=== PATIENT | female | born 1950 | race Hispanic/Latino ===

== ENCOUNTER 2018-08-10 08:34 | Emergency (ER) | payer MEDICARE ==
[~2018-08-10] VITALS: Ht 154.9 cm; Wt 78.9 kg
--- OUTSIDE RECORDS SUMMARY | 2018-08-10 08:37 | XMS REPORT | Summary of Care ---
Author Author [facility] Organization [facility] Address Unknown Phone Unavailable Encounter HQ Sabino(MANDA) [id number] Date(s): 10/27/16 - 10/27/16 [facility] [address] [place] [address]- Discharge Disposition: Home or Self Care Attending Physician: Felecia Welsh DO Vital Signs No data available for this section Problem List Condition Effective Dates Status Health Status Informant Benign essential Active HTN(Confirmed) BPPV (benign Active paroxysmal positional vertigo)(Confirmed) Low serum vitamin Active D(Confirmed) SOB (shortness of Active breath) on exertion(Confirmed) Excess ear Active wax(Confirmed) Hyperlipidemia, Active mixed(Confirmed) Obesity(Confirmed) Active Osteoporosis(Confirm Active ed) Prediabetes(Confirme Active d) Allergies, Adverse Reactions, Alerts Substance Reaction Severity Status Cipro Active NKDA Active Medications No data available for this section Results No data available for this section Immunizations Given and Recorded Vaccine Date Status Refusal Reason pneumococcal 23-valent vaccine 03/23/16 Recorded zoster vaccine live 03/23/16 Recorded Procedures No data available for this section Social History Social History Type Response Exercise Exercise type: Walking. Employment/School Status: Retired. Alcohol Never, Previous treatment: None. Alcohol use interferes with work or home: No. Drinks more than intended: No. Others hurt by drinking: No. Ready to change: No. Household alcohol concerns: No. Smoking Status Never smoker; Exposure to Tobacco Smoke None; Cigarette Smoking Last 365 Days No; Reg Smoking Cessation Counseling No Assessment and Plan No data available for this section
--- OUTSIDE RECORDS SUMMARY | 2018-08-10 08:37 | XMS REPORT | Summary of Care ---
Author Author [facility] Primary Care [facility] Organization [facility] Address Unknown Phone Unavailable Encounter HQ Bethr_shantelle(FIN) [id number] Date(s): 03/29/17 - 03/29/17 [facility] [address], [address] [place] [address]- [phone] Attending Physician: Kaela Klein MD Vital Signs No data available for this section Problem List Condition Effective Dates Status Health Status Informant Acute Active bronchitis(Confirmed ) Right knee Active pain(Confirmed) Benign essential Active HTN(Confirmed) BPPV (benign Active paroxysmal positional vertigo)(Confirmed) Breast cancer Active screening(Confirmed) B12 Active deficiency(Confirmed ) Low serum vitamin Active D(Confirmed) SOB (shortness of Active breath) on exertion(Confirmed) Skin rash(Confirmed) Active Excess ear Active wax(Confirmed) Kidney Active stones(Confirmed) Low back Active pain(Confirmed) Hyperlipidemia, Active mixed(Confirmed) Obesity(Confirmed) Active Osteoporosis(Confirm Active ed) Annual physical Active exam(Confirmed) Prediabetes(Confirme Active d) Colon cancer Active screening(Confirmed) Wheezing(Confirmed) Active Allergies, Adverse Reactions, Alerts Substance Reaction Severity Status Cipro Active NKDA Active Medications No data available for this section Results No data available for this section Immunizations Given and Recorded Vaccine Date Status Refusal Reason pneumococcal 23-valent vaccine 03/23/16 Recorded zoster vaccine live 03/23/16 Recorded Procedures Procedure Date Related Diagnosis Body Site Status Eye examination 09/2016 Completed Mammogram 2015 Completed Social History Social History Type Response Exercise [...] Days No; Reg Smoking Cessation Counseling No entered on: 06/24/17 Assessment and Plan No data available for this section
--- OUTSIDE RECORDS SUMMARY | 2018-08-10 08:37 | XMS REPORT | Summary of Care ---
Author Author [facility] Organization [facility] Address Unknown Phone Unavailable Encounter HQ Sabino(FIN) [id number] Date(s): 06/24/17 - 06/24/17 [facility] [address], [address] [place] [address]- [phone] Discharge Disposition: Home or Self Care Attending Physician: Kaela Klein MD Vital Signs Most recent to 1 oldest [Reference Range]: Height 154.94 cm (06/24/17 7:43 AM) Temperature Oral 98.2 DegF [96.4-99.1 DegF] (06/24/17 7:43 AM) Blood Pressure 136/74 mmHg [90-140/60-90 mmHg] (06/24/17 7:43 AM) Respiratory Rate 14 BRMIN [14-20 BRMIN] (06/24/17 7:43 AM) Peripheral Pulse 75 bpm Rate [60-100 bpm] (06/24/17 7:43 AM) Weight 83.182 kg (06/24/17 7:43 AM) Body Mass Index 34.65 m2 (06/24/17 7:43 AM) Problem List Condition Effective Dates Status Health [...] Severity Status Cipro Active NKDA Active Medications DME Addition #1 See Instructions, NEBULIZER MACHINE TO USE DAILY FOR WHEEZING, # 1 ea, 0 Refill( s) Start Date: 06/24/17 Status: Ordered ProAir HFA 90 mcg/inh inhalation aerosol with adapter 1 puff, INHALER, Q6H, PRN for wheezing, # 2 ea, 0 Refill(s) Start Date: 06/24/17 Stop Date: 07/08/17 Status: Ordered Results No data available for this section [...]
--- OUTSIDE RECORDS SUMMARY | 2018-08-10 08:37 | XMS REPORT | Summary of Care ---
Author Author [facility] Organization [facility] Address Unknown Phone Unavailable Encounter YE Gallo(MANDA) [id number] Date(s): 01/05/17 - 01/05/17 [facility] [address] [place] [address]- Discharge Disposition: Home or Self Care Attending Physician: Kaela Klein MD Referring Physician: Kaela Klein MD Vital Signs No data available for this section Problem List Condition Effective Dates Status Health Status Informant Right knee Active pain(Confirmed) Benign essential Active HTN(Confirmed) BPPV (benign Active paroxysmal positional vertigo)(Confirmed) Low serum vitamin Active D(Confirmed) SOB (shortness of Active breath) on exertion(Confirmed) Skin rash(Confirmed) Active Excess ear Active wax(Confirmed) Low back Active pain(Confirmed) Hyperlipidemia, Active mixed(Confirmed) [...] Procedures Procedure Date Related Diagnosis Body Site Eye examination 09/2016 Mammogram 2016 Social History Social History Type Response Exercise [...]
--- OUTSIDE RECORDS SUMMARY | 2018-08-10 08:37 | XMS REPORT | Summary of Care ---
Author Author [facility] Primary [facility] Organization [facility] Address Unknown Phone Unavailable Encounter HQ Bethr_shantelle(FIN) [id number] Date(s): 03/29/17 - 03/29/17 [facility] [address], [address] [place] [address]- [phone] Attending Physician: Kaela Klein MD Vital Signs [...]
--- OUTSIDE RECORDS SUMMARY | 2018-08-10 08:37 | XMS REPORT | Continuity of Care Document ---
Author Author [facility] Interface Address Unknown Phone Unavailable Problems Problem Status Onset Date Classification Date Reported Comments Source Age-related osteoporosis without current pathological fracture 12/22/2017 07/05/2018 [facility] [place] COUGH Active 08/30/2017 [facility] Epigastric pain 07/16/2017 07/20/2017 [facility] Generalized headache 07/16/2017 07/20/2017 [facility] HYPERTENSION Active 07/16/2017 [facility] Allergic rhinitis, unspecified 06/25/2017 09/23/2017 [facility] R06.2 Active 06/17/2017 [facility] DX: N20.0=CALCULUS OF KIDNEY M54.5 Active 01/03/2017 [facility] M25.511 Active 10/27/2016 [facility] M79.641 Active 07/09/2016 [facility] TRUNK STABALIZATION Active 06/20/2016 [facility] TRUNK STABILIZATION Active 06/16/2016 [facility] ABNORMAL MAMMO Active 04/19/2016 [facility] DX: ROUTINE SCREENING Active 04/09/2016 [facility] Right hand pain Active Problem 08/28/2016 [facility] Left ear pain Active Problem 08/28/2016 [facility] Sore throat Active Problem 08/28/2016 [facility] Right ear pain Active Problem 08/28/2016 [facility] Right knee pain Active Problem 06/12/2018 [facility] Benign essential HTN Active Problem 06/12/2018 [facility] BPPV (<span ID="[id number]">Confirmed</span>) Active Problem 06/12/2018 [facility] Low serum vitamin D Active Problem 06/12/2018 [facility] SOB on exertion(<span ID="[id number]">Confirmed</span>) Active Problem 06/12/[address] [facility] Skin rash Active Problem 06/12/2018 [facility] Excess ear wax Active Problem 06/12/2018 [facility] Low back pain Active Problem 06/12/2018 [facility] Hyperlipidemia, mixed Active Problem 06/12/2018 [facility] Obesity Active Problem 06/12/2018 [facility] Osteoporosis Active Problem 06/12/2018 [facility] Prediabetes Active Problem 06/12/2018 [facility] Cough 09/02/2017 [facility] Wheezing 09/23/2017 [facility] Atherosclerosis of aorta 09/23/2017 [facility] Essential hypertension 07/05/2018 [facility] [place] Primary osteoarthritis, left hand 07/03/2018 [facility] [place] Primary osteoarthritis, right hand 07/03/2018 [facility] [place] Pleural plaque without asbestos 07/03/2018 [facility] [place] Acute bronchitis Active Problem 07/05/2018 [facility], [facility] [place] Adrenal cyst Active Problem 07/05/2018 [facility], [facility] [place] Right knee pain Active Problem 07/05/2018 [facility] [place] Benign essential HTN Active Problem 07/05/2018 [facility] [place] BPPV (<span ID="[id number]">Confirmed</span>) Active Problem 07/05/2018 [facility] [place] Breast cancer screening Active Problem 07/05/2018 [facility] [place] Chronic cough Active Problem 07/05/2018 [facility] [place] B12 deficiency [facility]05[facility] [place] Low serum vitamin D Active Problem 07/05/2018 [facility] [place] SOB on exertion(<span ID="[id number]">Confirmed</span>) Active Problem 07/05/2018 [facility], [facility] [place] Skin rash Active Problem 07/05/2018 [facility] [place] [facility] discharge follow-up Active Problem 07/05/2018 [facility] [place] GERD (<span ID="[id number]">Confirmed</span>) Active Problem 07/05/2018 [facility], [facility] [place] Headache Active Problem 07/05/2018 [facility], [facility] [place] Excess ear wax Active Problem 07/05/2018 [facility], [facility] [place] Kidney stones Active Problem 07/05/2018 [facility], [facility] [place] Low back pain Active Problem 07/05/2018 [facility], [facility] [place] Hyperlipidemia, mixed Active Problem 07/05/2018 [facility], [facility] [place] Obesity Active Problem 07/05/2018 [facility] [place], [facility] [place] Osteoporosis Active Problem 07/05/2018 [facility], [facility] [place] Prediabetes Active Problem 07/05/2018 [facility], [facility] [place] Wheezing Active Problem 07/05/2018 [facility], [facility] [place] Asymptomatic menopausal state 07/05/2018 [facility] [place] Polyarthritis, unspecified 07/05/2018 [facility] [place] J20.9 Active [facility] ACUTE BRONCHITIS, UNSPECIFIED Active [facility] OTH ABN AND INCONCLUSIVE FINDINGS ON DX Active [facility] AGE-RELATED OSTEOPOROSIS W/O CURRENT PAT Active [facility] M25.551 Active [facility] PAIN IN RIGHT KNEE Active [facility] LOW BACK PAIN Active [facility] OSTEOARTHRITIS OF KNEE, UNSPECIFIED Active [facility] PAIN IN RIGHT SHOULDER Active [facility] PAIN IN RIGHT HIP Active [facility] PAIN IN RIGHT HAND Active [facility] CALCULUS OF KIDNEY Active [facility] Medications Medication Details Route Status Patient Instructions Ordering Provider Order Date Source losartan 50 mg oral tablet See Instructions, TOME KRISTYN TABLETA TODOS [place], # 30 tab, 0 Refill(s), Pharmacy: [facility]/pharmacy #[id number] Active 05/17/2018 [facility] losartan 50 mg oral tablet 50 mg=1 tab, PO, Daily, # 90 tab, 1 Refill(s), Pharmacy: [facility]/pharmacy #[id number] No Longer Active 11/23/2017 [facility] Metoprolol Succinate ER 50 mg oral tablet, extended release See Instructions, TAKE ONE TABLET BY MOUTH DAILY, # 90 tab, 1 Refill(s), Pharmacy: [facility]/pharmacy #[id number] Active 11/23/2017 [facility] simvastatin 10 mg oral tablet 10 mg=1 tab, PO, Bedtime, # 90 tab, 1 Refill(s), [id number] 11/23/2017 [facility] DME Addition #1 See Instructions, PATIENT NEEDS BP MACHINE TO CHECK BP BID, # 1 ea, 0 Refill(s) Active 08/22/2017 [facility] valsartan 80 mg oral tablet 80 mg=1 tab, PO, Daily, # 90 tab, 1 Refill(s), [id number] Active 08/22/2017 [facility] baclofen 10 mg oral tablet 10 mg=1 tab, PO, Bedtime, PRN Spasms, MAY CAUSE DRAWSINESS, # 10 tab, 0 Refill(s), [id number] Active 07[facility]18/2017 [facility] ibuprofen 800 mg oral tablet 800 mg=1 tab, PO, Q12H, PRN Pain, Take with food, X 10 day, # 20 tab, 0 Refill(s), [id number] Active 07/18/2017 [facility] Famotidine 20 MG Oral Tablet [Pepcid] 20 mg=1 tab, PO, BID, # 60 tab, 0 Refill(s) Active 07/17/2017 [facility] Morphine 2 mg, 0.5 mL, Route: IVP, Drug form: SOLN, ONCE, Dosing Weight 82.727, kg, Priority: STAT, Start date: 07/16/17 20:35:00 CDT, Stop date: 07/16/17 20:35:00 CDTNotes: (Same as:MORPhine Sulfate) Inactive 07/17/2017 [facility] Sodium Chloride 0.9% (Bolus) IV 500 mL, 500 ml/hr, Infuse Over: 1 hr, Route: IV, 500, Drug form: INJ, ONCE, Priority: STAT, Dosing Weight 82.727 kg, Start date: 07/16/17 20:08:00 CDT, Stop date: 07/16/17 20:08:00 CDT Inactive 07/17/2017 [facility] Benadryl 12.5 mg, 0.25 mL, Route: IVP, Drug form: INJ, ONCE, Dosing Weight 82.727, kg, Priority: STAT, Start date: 07/16/17 20:08:00 CDT, Stop date: 07/16/17 20:08:00 CDTNotes: (Same as: Benadryl) Inactive 07/17/2017 [facility] Reglan 10 mg, 2 mL, Route: IVP, Drug form: SOLN, ONCE, Dosing Weight 82.727, kg, Priority: STAT, Start date: 07/16/17 20:08:00 CDT, Stop date: 07/16/17 20:08:00 CDTNotes: (Same as: Reglan) Inactive 07/17/2017 [facility] Saline Flush 0.9% 10 mL, Route: IVP, Drug Form: INJ, Dosing Weight 83.239, kg, PRN, PRN Line Flush, Start date: 07/16/17 14:03:00 CDT, Duration: 30 day, Stop date: 08/15/17 14:02:00 CDTNotes: Same as: BD Posiflush Sterile No Longer Active 07/16/2017 [facility] Ventolin HFA 90 mcg/inh inhalation aerosol with adapter 2 puff, INHALER, Q4H, PRN wheezing, coughing, or shortness of breath, # 8 gm, 1 Refill(s), Pharmacy: [facility]/pharmacy #[id number] Active 07/12/2017 [facility] Azithromycin 5 Day Dose Pack 250 mg oral tablet See Instructions, Take 2 tablets by mouth the first day then 1 tablet by mouth days 2-5., X 5 day, # 6 tab, 0 Refill(s), Pharmacy: [facility]/pharmacy #[id number] Active 07/12/2017 [facility] 200 ACTUAT Albuterol 0.09 MG/ACTUAT Metered Dose Inhaler [ProAir HFA] 1 puff, INHALER, Q6H, PRN for wheezing, # 2 ea, 0 Refill(s) Active 06/24/2017 [facility] DME Addition #1 See Instructions, NEBULIZER MACHINE TO USE DAILY FOR WHEEZING, # 1 ea, 0 Refill(s) Active 06/24/2017 [facility] Albuterol 0.417 MG/ML Inhalant Solution 1.25 mg=3 mL, INHALATION, Q4H, PRN Cough, Wheezing, or Shortness of Breath, # 25 ea, 1 Refill(s), Pharmacy: [facility]/pharmacy #[id number] No Longer Active 06/17/2017 [facility] Brompheniramine Maleate 0.4 MG/ML / Dextromethorphan Hydrobromide 2 MG/ML / Pseudoephedrine Hydrochloride 6 MG/ML Oral Solution [Bromfed DM] 5 mL, PO, TID, PRN cough, X 8 day, # 120 mL, 0 Refill(s), [id number] No Long[facility] Active 06/17/2017 [facility] 200 ACTUAT Albuterol 0.09 MG/ACTUAT Metered Dose Inhaler [ProAir HFA] 1 puff, INHALER, Q6H, PRN for wheezing, # 2 ea, 0 Refill(s), Pharmacy: [facility]/pharmacy #[id number] No Longer Active 06/17/2017 [facility] Metoprolol Succinate ER 50 mg oral tablet, extended release See Instructions, TAKE ONE TABLET BY MOUTH DAILY, # 90 tab, 1 Refill(s), [id number] Active 06/07/2017 [facility] Ergocalciferol 94858 UNT Oral Capsule 50,000 IntlUnit=1 cap, PO, qWeek, # 13 cap, 1 Refill(s), [id number] Active 04/22/2017 [facility] Aspirin 81 MG Enteric Coated Tablet 81 mg=1 tab, PO, Daily, # 90 tab, 3 Refill(s), [id number] Active 04/22/2017 [facility] Vitamin B12 1000 mcg oral tablet 1,000 microgram=1 tab, PO, Daily, # 100 tab, 0 Refill(s), [id number] Active 04/22/2017 [facility] Metoprolol Succinate ER 50 mg oral tablet, extended release See Instructions, TAKE ONE TABLET BY MOUTH DAILY, # 90 tab, 1 Refill(s), Pharmacy: [facility]/pharmacy #[id number] No Longer Active 04/15/2017 [facility] simvastatin 10 mg oral tablet 10 mg=1 tab, PO, Bedtime, # 90 tab, 1 Refill(s), [id number] Active 04/15/2017 [facility] Ergocalciferol 08187 UNT Oral Capsule 50,000 IntlUnit=1 cap, PO, 2x/Wk, # 24 cap, 1 Refill(s), Pharmacy: [facility]/pharmacy #[id number] No Longer Active 04/15/2017 [facility] Alendronic acid 70 MG Oral Tablet 70 mg=1 tab, PO, Q7D, with 6 to 8 ounces plain water, at least 30 minutes before first food, beverage, or medication of the day, # 16 tab, 3 Refill(s), [id number] Active 04/15/2017 [facility] loratadine 10 mg oral tablet 10 mg=1 tab, PO, Daily, # 90 tab, 1 Refill(s), [id number] Active 04/15/2017 [facility] metoprolol 50 mg oral tablet, extended release 50 mg=1 tab, PO, Daily, # 90 tab, 0 Refill(s), [id number] Active 07/13/2016 [facility] [place] Allergies, Adverse Reactions, Alerts Substance Category Reaction Severity Reaction type Status Date Reported Comments Source Cipro Assertion Drug allergy Active [facility] Immunizations Immunization Date Given Site Status Last Updated Comments Source pneumococcal 23-valent vaccine 03/23/2016 completed Recavarren Frye [facility] zoster vaccine live 03/23/2016 completed Recavarren Frye [facility] pneumococcal 23-valent vaccine 03/23/2016 completed Recavarren Frye [facility], [facility] [place] zoster vaccine live 03/23/2016 completed Recavarren Frye [facility], [facility] [place] Results Order Name Results Value Reference Range Date Interpretation Comments Source Chest 2 views DX Chest 2 views DX EXAM: Chest 2 views DX DATE: 08/09/2018 13:41 CDT . ORDERING PHYSICIAN: Lg Presley MD CLINICAL INDICATION: - R05 Cough; TECHNIQUE: PA and lateral views of chest COMPARISON: 03/28/2018 rib series FINDINGS: The lungs are hyperinflated lungs without focal consolidation.. Heart size and mediastinal contours are normal. There is no acute bony abnormality. IMPRESSION: Hyperinflated lungs without focal consolidation 08/09/2018 - - Read by: Ishmael Segura MD Dictated Date/time: 08/09/18 16:04 Electronically Signed by: Ishmael Segura MD 08/09/18 16:04 FINAL REPORT [facility] Ribs unilateral DX Ribs unilateral DX EXAMINATION: Right ribs unilateral HISTORY: - R07.81 Pleurodynia; right side rib pain; right-sided chest wall pain FINDINGS: 4 views of the right ribs are performed and compared to chest radiograph dated 12/14/2017. There are no right-sided rib fractures identified. There is no right pleural effusion or right-sided pneumothorax. IMPRESSION: 1. No right-sided rib fracture identified. * Please note, rib series radiographs have limited sensitivity for the detection of rib fracture. Cross-sectional imaging with CT may be performed for further evaluation, if clinically necessary. 03/28/2018 - - Read by: Ezequiel Garcia MD Dictated Date/time: 03/28/18 17:33 Electronically Signed by: Ezequiel Garcia MD 03/28/18 17:35 FINAL REPORT [facility] Spine lumbar series DX Spine lumbar series DX EXAM: Lumbar spine x-ray, 5 view(s). CLINICAL HX: - M25.551 Pain in right hip; M79.18 Myalgia, other site. Age: 67 years. Gender: Female. COMPARISON: None. FINDINGS: Alignment: Intact. Fracture: No acute compression fracture or subluxation. No pars defects. Spondylosis: Mild multilevel facet degeneration. IMPRESSION: 1. No acute compression fracture. 03/28/2018 - - Read by: Albaro Patrick MD Dictated Date/time: 03/28/18 17:27 Electronically Signed by: Albaro Patrick MD 03/28/18 17:29 FINAL REPORT [facility] Hip 2/3 views uni w pelvis DX Hip 2/3 views uni w pelvis DX EXAM: Right hip x-ray, 4 view(s). CLINICAL HX: - M25.551 Pain in right hip. Age: 67 years. Gender: Female. COMPARISON: None. FINDINGS: No acute fracture or dislocation. Intact right acetabulum. IMPRESSION: 1. No acute fracture. 03/28/2018 - - Read by: Albaro Patrick MD Dictated Date/time: 03/28/18 17:29 Electronically Signed by: Albaro Patrick MD 03/28/18 17:31 FINAL REPORT [facility] Bone Density DXA [employer] MA Bone Density [employer] MA BONE DENSITY ASSESSMENT: 12/16/2017 CLINICAL DATA: Post menopausal. Age-Related Osteoporosis Without Current Pathological Fracture/M81.0 FINDINGS: Bone density evaluation was performed 12/16/2017 on the right femur neck using a Hologic unit. The BMD average for the exam is 0.588 g/cm2. The T-score is -2.30 and the Z-score is -0.80. This matches the World Health Organization's criteria for osteopenia and places the patient at a medium risk for fracture. An additional bone density evaluation was performed 12/16/2017 on the left femur neck using a Hologic unit. The BMD average for the exam is 0.630 g/cm2. The T- score is -2.00 and the Z-score is -0.40. This matches the World Health Organization's criteria for osteopenia and places the patient at a medium risk for fracture. An additional bone density evaluation was performed 12/16/2017 on the right hip using a Hologic unit. The BMD average for the exam is 0.752 g/cm2. The T-score is -1.60 and the Z-score is -0.20. This matches the World Health Organization's criteria for osteopenia and places the patient at a medium risk for fracture. An additional bone density evaluation was performed 12/16/2017 on the left hip using a Hologic unit. The BMD average for the exam is 0.827 g/cm2. The T-score is -0.90 and the Z-score is 0.30. This matches the World Health Organization's criteria for normal bone density and places the patient within normal limits of fracture risk. An additional bone density evaluation was performed 12/16/2017 on the AP L3-L4 region of spine using a Hologic unit. The BMD average for the exam is 0.790 g/cm2. The T-score is -2.80 and the Z-score is -0.70. This matches the World Health Organization's criteria for osteoporosis and places the patient at a high risk for fracture. IMPRESSION: OSTEOPOROSIS Patient is at high risk for fracture. This exam was interpreted at [id number] for PANCHITO Klein 15. Pedro Luis Pena M.D., cm/sergei:12/16/2017 13:46:21 [employer]er Repairer Machine(s): Palmira RAMIRES)([place]), [facility] 12/16/2017 - - Read by: Salvador Payne MD Dictated Date/time: 12/16/17 13:46 Electronically Signed by: Salvador Payne MD 12/16/17 13:46 FINAL REPORT [facility] Hand 3 views Bilateral DX Hand 3 views Bilateral DX Exam: Right and left hand x-rays, 3 views each Reason for Exam: - M13.0 Polyarthritis, unspecified Comparison Exam: None Discussion: Right: No acute bony abnormalities. Joint spaces are unremarkable. No suspicious osteoblastic or osteolytic lesions. Left: No acute bony abnormalities. Joint spaces are unremarkable. Chronic appearing changes seen within the ulnar styloid. No suspicious osteoblastic or osteolytic lesions. Impression: 1. Joint spaces are unremarkable. Chronic appearing changes seen within the left ulnar styloid. 12/14/2017 - - Read by: Darvin Portillo MD Dictated Date/time: 12/14/17 11:32 Electronically Signed by: Darvin Portillo MD 12/14/17 11:39 FINAL REPORT [facility] [place] Chest 2 views DX Chest 2 views DX Exam: Two-view chest x-ray Reason for Exam: - I10 Essential (primary) hypertension Comparison Exam: X-ray 08/30/2017 Discussion: Cardiomediastinal silhouette is within normal limits. Both hemidiaphragms well visualized. No pulmonary edema or pleural effusions. No focal lung consolidations. Trachea is midline. Mild pleural thickening seen within the lower aspect of left hemithorax. No acute bony abnormalities. Impression: 1. No acute cardiopulmonary abnormalities. 12/14/2017 - - Read by: Darvin Portillo MD Dictated Date/time: 12/14/17 12:48 Electronically Signed by: Darvin Portillo MD 12/14/17 12:50 FINAL REPORT TODD DARWINRangel Vitaliy Chest 2 views DX Chest 2 views DX PA and lateral chest: The cardiomediastinal silhouette, pulmonary vasculature and nicol are otherwise within normal limits. The lungs and pleural spaces are clear. There are no significant osseous abnormalities. There is no significant change compared to 07/16/2017. IMPRESSION: No acute radiographic abnormalities in the chest. [id number] 08/30/2017 - - Read by: Orlando Cummings MD Dictated Date/time: 08/30/17 16:05 Electronically Signed by: Orlando Cummings MD 08/30/17 16:06 FINAL REPORT [facility] Sinus paranasal series DX Sinus paranasal series DX Paranasal sinuses: There is minimal mucosal thickening in the right maxillary sinus without fluid. The other sinuses are clear without mucosal thickening or fluid levels. There are no significant osseous or soft tissue abnormalities. IMPRESSION: Minimal mucosal thickening in the right maxillary sinus without other significant radiographic abnormalities of the paranasal sinuses. [id number] 08/30/2017 - - Read by: Orlando Cummings MD Dictated Date/time: 08/30/17 16:09 Electronically Signed by: Orlando Cummings MD 08/30/17 16:10 FINAL REPORT [facility] ED Abdomen/Pelvis IV contrast only CT ED Abdomen/Pelvis IV contrast only CT Patient Name: GORAN VILLARERAL : 1950; Age: 66 years y/o Female MR: [id number] Study: ED Abdomen/Pelvis IV contrast only CT 07/16/2017 8:35 PM CDT Ordering Physician: Nelida Douglas MD Clinical Indication: - epigastric and niyah upper quadrant pain Comparison: 07/12/09 TECHNIQUE: Sequential trans-axial images were obtained with a multi-detector helical CT with IV contrast. Coronal and sagittal reconstructions were obtained. 100 mL of Omni intravenously were used for the exam. CT Radiation Dose DLP 1110.17 mGy-cm FINDINGS: CT ABDOMEN: VISUALIZED LUNG BASES: demonstrate no acute pathology. ABDOMINAL ORGANS: The liver, spleen, pancreas, adrenals and kidneys demonstrate no acute pathology. 14mm right adrenal lesion noted. STOMACH AND ABDOMINAL BOWEL: The stomach demonstrates no acute pathology. There is no evidence of bowel obstruction or free air. PERITONEUM AND RETROPERITONEUM: There is no lymphadenopathy appreciated. VASCULAR STRUCTURES: The abdominal aorta demonstrates no acute pathology . Atherosclerotic calcifications noted. CT PELVIS: PELVIC BOWEL: The appendix does not appear inflamed. PERITONEUM AND EXTRAPERITONEAL REGIONS: There is no pelvic sidewall lymphadenopathy. The inguinal regions demonstrate no acute pathology. BLADDER: The bladder demonstrate no acute pathology. OSSEOUS STRUCTURES: There are no focal suspicious lesions appreciated. IMPRESSION: Right adrenal lesion, follow up recommended. [Diverticulosis, otherwise no acute pathology appreciated. Please correlate, follow-up recommended if ongoing clinical concern RAMONE FINCH 07/16/2017 - - Read by: Monica Sharma MD Dictated Date/time: 07/16/17 22:15 Electronically Signed by: Monica Sharma MD 07/16/17 22:24 FINAL REPORT [facility] CARDIAC ENZYMES CK MB Index 1.5 0.0 - 2.5 07/16/2017 [facility] CARDIAC ENZYMES BNP 102 pg/mL <=100 pg/mL 07/16/2017 [facility] CARDIAC ENZYMES Total CK 97 unit/L 12 - 191 07/16/2017 [facility] CARDIAC ENZYMES CK MB 1.5 ng/mL 0.5 - 3.6 07/16/2017 [facility] CARDIAC ENZYMES Troponin-I null 0.00 - 0.40 07/16/2017 [facility] CHEM PANEL Lipase Lvl 133 unit/L 73 - 393 07/16/2017 [facility] CHEM PANEL eGFR 102 mL/min/1.73m2 07/16/2017 Result Comment: The eGFR is calculated using the CKD-EPI formula. In most young, healthy individuals the eGFR will be >90 mL/min/1.73m2. The eGFR declines with age. An eGFR of 60-89 may be normal in some populations, particularly the elderly, for whom the CKD-EPI formula has not been extensively validated. Use of the eGFR is not recommended in the following populations: Individuals with unstable creatinine concentrations, including patients and those with serious co-morbid conditions. Patients with extremes in muscle mass or diet. The data above are obtained from the National Kidney Disease Education Program (NKDEP) which additionally recommends that when the eGFR is used in patients with extremes of body mass index for purposes of drug dosing, the eGFR should be multiplied by the estimated BMI. [facility] CHEM PANEL A/G Ratio 1.0 0.7 - 1.6 07/16/2017 [facility] CHEM PANEL Globulin 3.7 g/dL 2.7 - 4.2 07/16/2017 [facility] CHEM PANEL B/C Ratio 17 6 - 25 07/16/2017 [facility] CHEM PANEL Bili Total 0.3 mg/dL 0.2 - 1.3 07/16/2017 [facility] CHEM PANEL AGAP 11.1 meq/L 10.0 - 20.0 07/16/2017 [facility] CHEM PANEL Calcium Lvl 9.0 mg/dL 8.5 - 10.5 07/16/2017 [facility] CHEM PANEL Total Protein 7.4 g/dL 6.4 - 8.4 07/16/2017 [facility] CHEM PANEL Potassium Lvl 4.1 meq/L 3.5 - 5.1 07/16/2017 [facility] CHEM PANEL Chloride Lvl 106 meq/L 95 - 109 07/16/2017 [facility] CHEM PANEL CO2 29 meq/L 24 - 32 07/16/2017 [facility] CHEM PANEL ALT 39 unit/L 0 - 65 07/16/2017 [facility] CHEM PANEL AST 24 unit/L 0 - 37 07/16/2017 [facility] CHEM PANEL Albumin Lvl 3.7 g/dL 3.5 - 5.0 07/16/2017 [facility] CHEM PANEL Alk Phos 104 unit/L 39 - 136 07/16/2017 [facility] CHEM PANEL Glucose Lvl 98 mg/dL 70 - 99 07/16/2017 [facility] CHEM PANEL Creatinine Lvl 0.48 mg/dL 0.50 - 1.40 07/16/2017 [facility] CHEM PANEL Sodium Lvl 142 meq/L 135 - 145 07/16/2017 [facility] CHEM PANEL BUN 8 mg/dL 7 - 22 07/16/2017 [facility] HEMATOLOGY WBC 10.2 K/CMM 3.7 - 10.4 07/16/2017 [facility] MCH 29.9 pg 27.0 - 31.0 07/16/2017 [facility] HEMATOLOGY Hct 41.1 % 36.0 - 48.0 07/16/2017 [facility] HEMATOLOGY MCV 88.2 fL 80.0 - 98.0 07/16/2017 [facility] HEMATOLOGY RBC 4.66 M/CMM 4.20 - 5.40 07/16/2017 [facility] HEMATOLOGY Hgb 14.0 g/dL 12.0 - 16.0 07/16/2017 [facility] HEMATOLOGY MPV 8.4 fL 7.4 - 10.4 07/16/2017 [facility] HEMATOLOGY Platelet 294 K/CMM 133 - 450 07/16/2017 [facility] HEMATOLOGY RDW 13.2 % 11.5 - 14.5 07/16/2017 [facility] MCHC 33.9 g/dL 32.0 - 36.0 07/16/2017 [facility] HEMATOLOGY Eosinophils 1.9 % 0.0 - 4.0 07/16/2017 [facility] HEMATOLOGY Basophils 0.4 % 0.0 - 1.0 07/16/2017 [facility] HEMATOLOGY Monocytes 5.2 % 2.0 - 12.0 07/16/2017 [facility] HEMATOLOGY Lymphocytes 27.2 % 20.0 - 40.0 07/16/2017 [facility] HEMATOLOGY Segs 65.3 % 45.0 - 75.0 07/16/2017 [facility] HEMATOLOGY Eosinophils # 0.2 K/CMM 0.0 - 0.5 07/16/2017 [facility] HEMATOLOGY Monocytes # 0.5 K/CMM 0.0 - 0.8 07/16/2017 [facility] HEMATOLOGY Lymphocytes # 2.8 K/CMM 1.0 - 5.5 07/16/2017 [facility] HEMATOLOGY Segs-Bands # 6.6 K/CMM 1.5 - 8.1 07/16/2017 [facility] URINE AND STOOL UA Turbidity Clear (07/16/17 2:03 PM) Clear 07/16/2017 [facility] URINE AND STOOL UA Ketones Negative mg/dL Negative mg/dL 07/16/2017 [facility] URINE AND STOOL UA Bili Negative *NA* (07/16/17 2:03 PM) Negative 07/16/2017 [facility] URINE AND STOOL UA Protein Negative mg/dL Negative mg/dL 07/16/2017 [facility] URINE AND STOOL UA Glucose Negative mg/dL Negative mg/dL 07/16/2017 [facility] URINE AND STOOL UA pH 6.0 5.0 - 8.0 07/16/2017 [facility] URINE AND STOOL UA Spec Grav 1.004 <=1.030 07/16/2017 [facility] URINE AND STOOL UA Blood Negative (07/16/17 2:03 PM) Negative 07/16/2017 [facility] URINE AND STOOL UA RBC 1 /HPF 0 - 2 07/16/2017 [facility] URINE AND STOOL UA WBC 3 /HPF 0 - 5 07/16/2017 [facility] URINE AND STOOL UA Nitrite Negative (07/16/17 2:03 PM) Negative 07/16/2017 [facility] URINE AND STOOL UA Leuk Est Trace *ABN* (07/16/17 2:03 PM) Negative 07/16/2017 [facility] URINE AND STOOL UA Sq Epi None Seen 07/16/2017 [facility] URINE AND STOOL UA Urobilinogen <=1.0 mg/dL 0.1 - 1.0 07/16/2017 [facility] URINE AND STOOL UA Color Ltyellow 07/16/2017 [facility] Brain wo contrast CT Brain wo contrast CT Patient Name: GORAN VILLARREAL : 1950; Age: 66 years y/o Female MR: [id number] Study: Brain wo contrast CT 07/16/2017 2:09 PM CDT Clinical Indication: - MAY, HTN, n/v; Comparison: None TECHNIQUE: CT images were obtained from the foramen magnum to the vertex without the use of intravenous contrast on a multidetector CT. Coronal and sagittal reconstructions were obtained. DLP: 901.26 mGy-cm. FINDINGS: BRAIN PARENCHYMA: Right vertebral and bilateral carotid artery calcification. Patchy low density in the frontal white matter bilaterally and left tomlinson radiata consistent with small vessel changes. No evidence for subarachnoid, intraparenchymal or intraventricular hemorrhage. No significant extra-axial fluid collection, mass effect or shift. No evidence for an acute infarction. No mass lesions identified about the brain. VENTRICLES: Ventricles and sulci are within normal limits for the patient's age. Persistent cavum septum pellucida and cavum vergae noted. ORBITS, MASTOIDS AND PARANASAL SINUSES: Moderate left sphenoid sinus disease. Left ethmoid sinus disease. SKULL: There are no osseous abnormalities. If there is further concern for intracranial pathology or acute stroke, MRI of the brain may be performed for complete assessment. IMPRESSION: 1. Intracranial vascular calcification as above. 2. Small vessel changes. 3. Left sphenoid and left ethmoid sinus disease as above. SL: CSODERSTROMALEXIS 07/16/2017 - - Read by: Cj Manning MD Dictated Date/time: 07/16/17 16:31 Electronically Signed by: Cj Manning MD 07/16/17 16:36 FINAL REPORT [facility] Chest 1view DX Chest 1view DX Study: Chest 1view DX Clinical Indication: Chest pain - chest pain Comparison: Chest x-ray from 06/17/2017 FINDINGS: The cardiac silhouette is normal in size. The lungs are clear and without consolidation or congestion. No pleural effusion or pneumothorax is seen. The osseous structures are unremarkable. IMPRESSION: No acute cardiopulmonary disease. SL: [id number] 07/16/2017 - - Read by: Logan Castorena MD Dictated Date/time: 07/16/17 15:06 Electronically Signed by: Logan Castorena MD 07/16/17 15:07 FINAL REPORT [facility] 2 views DX Chest 2 views DX EXAM: Chest 2 views DX DATE: 06/17/2017 11:01 AM CDT INDICATION: Cough and fever. COMPARISON: 03/30/2016. IMPRESSION: Stable cardiac silhouette and mediastinum. Atherosclerotic thoracic aorta. No focal consolidation, significant pleural effusion or pneumothorax. Surgical clips are present within the right upper quadrant. SL: [id number] 06/17/2017 - - Read by: Dominic Kearney MD Dictated Date/time: 06/17/17 11:27 Electronically Signed by: Dominic Kearney MD 06/17/17 11:31 FINAL REPORT [facility] Retroperitoneal Complete US Retroperitoneal Complete US Clinical Indication: - back pain. Comparison: CT renal stone 08/13/2014 TECHNIQUE: Multiple longitudinal and transverse real time sonographic images of the kidneys and urinary bladder are obtained. FINDINGS: KIDNEY: The right kidney measures 11.6 x 5.6 x 5.4 cm. The left kidney measures 10.4 x 5.5 x 4.8 cm. The kidneys are normal in size, shape, contour, and position. The cortices are normal in thickness. There is no hydronephrosis. Punctate echogenic foci are seen within the bilateral kidneys measuring up to 4 mm. No cystic renal lesion. BLADDER: Scanning through the pelvis reveals the bladder to be partially distended with anechoic urine. The bladder wall appears mildly trabeculated and thickened. IMPRESSION: Punctate echogenic shadowing foci within the kidneys may be related to small nonobstructing stones versus artifact related to the interface between the medullary pyramids and the renal sinus fat Bladder wall appears thickened. SL: WR1-M 01/05/2017 - - Read by: Anastasia Ortega MD Dictated Date/time: 01/05/17 17:52 Electronically Signed by: Anastasia Ortega MD 01/05/17 17:54 FINAL REPORT [facility] Shoulder series DX Shoulder series DX Patient Name: GORAN VILLARREAL : 1950; Age: 66 years Female MR: [id number] Study: Shoulder series DX 10/27/2016 12:43 PM CDT CLINICAL INDICATION: - W19.XXXA Unspecified fall, initial encounter, m25.511 right shoulder pain COMPARISON: None FINDINGS: Views and laterality: Right shoulder 3 views No displaced fracture or dislocation. Mild to moderate degenerative changes of the acromioclavicular joint. The glenohumeral joint is intact. The visualized lung is clear. IMPRESSION: No acute bony abnormalities. SL: [id number] 10/27/2016 - - Read by: Klever Modi MD Dictated Date/time: 10/27/16 16:44 Electronically Signed by: Klever Modi MD 10/27/16 16:45 FINAL REPORT [facility] Hip 4+ views uni DX Hip 4+ views uni DX Patient Name: GORAN VILLARREAL : 1950; Age: 66 years Female MR: [id number] Study: Hip 4+ views uni DX 10/27/2016 12:43 PM CDT CLINICAL INDICATION: - W19.XXXA Unspecified fall, initial encounter, m25.551 right hip pain COMPARISON: None FINDINGS: Views and laterality: Right hip 4 views No displaced fracture or dislocation. Mild degenerative changes of the bilateral hips and pubic symphysis. No gross soft tissue abnormalities. IMPRESSION: No acute bony abnormalities. SL: [id number] 10/27/2016 - - Read by: Klever Modi MD Dictated Date/time: 10/27/16 16:45 Electronically Signed by: Klever Modi MD 10/27/16 16:46 FINAL REPORT [facility] Knee 4+ views unilateral DX Knee 4+ views unilateral DX Patient Name: GORAN VILLARREAL : 1950; Age: 66 years Female MR: [id number] Study: Knee 4+ views unilateral DX 10/27/2016 12:43 PM CDT CLINICAL INDICATION: - W19.XXXA Unspecified fall, initial encounter, m25.561 right knee pain COMPARISON: None FINDINGS: Views and laterality: Right knee 4 views No displaced fracture or dislocation. Moderate tricompartmental degenerative changes, most notably involving the lateral compartment. Several intra-articular loose bodies noted. No gross soft tissue abnormalities. IMPRESSION: No acute bony abnormalities. SL: [id number] 10/27/2016 - - Read by: Klever Modi MD Dictated Date/time: 10/27/16 16:46 Electronically Signed by: Klever Modi MD 10/27/16 16:48 FINAL REPORT [facility] Wrist 2 views DX Wrist 2 views DX Right wrist 2 views: There is no fracture or dislocation. There are no other significant osseous, articular or soft tissue abnormalities. IMPRESSION: No acute radiographic abnormalities of the right wrist. [id number] 07/09/2016 - - Read by: Orlando Cummings MD Dictated Date/time: 07/09/16 15:46 Electronically Signed by: Orlando Cummings MD 07/09/16 15:47 FINAL REPORT [facility] Knee 3 Views Bilateral DX Knee 3 Views Bilateral DX Study: Bilateral knees, 8 views Clinical Indication: Bilateral knee pain Comparison: None FINDINGS: Multiple views of the bilateral knees show no acute bony fracture, joint dislocation, or suspicious osseous lesion. Severe lateral femorotibial compartment osteoarthrosis of the bilateral knees is seen with severe joint space narrowing and mild marginal osseous spurring, greater in the right knee than the left knee. No joint effusions are seen. Soft tissues are unremarkable. Subcentimeter loose bodies along the anterior right knee are seen. IMPRESSION: Severe lateral femorotibial compartment osteoarthrosis of the bilateral knees, worse on the right than the left. : WR4-M 05/28/2016 - - Read by: Logan Castorena MD Dictated Date/time: 05/28/16 15:19 Electronically Signed by: Logan Castorena MD 05/28/16 15:20 FINAL REPORT [facility] Hip 2/3 views uni DX Hip 2/3 views uni DX Patient Name: GORAN VILLARREAL : 1950; Age: 65 years Female MR: [id number] Study: Hip 2/3 views uni DX Order Time: 05/28/2016 10:53 AM CDT Clinical Indication: Rt hip pain COMPARISON: None FINDINGS: 2 views of the right hip are submitted for evaluation. The bones are diffusely demineralized. There is no acute fracture or dislocation. Partial visualization of surgical clips in the right pelvis. IMPRESSION: No acute fracture. : WR1-M 05/28/2016 - - Read by: Cameron Mejía MD Dictated Date/time: 05/28/16 15:16 Electronically Signed by: Cameron Mejía MD 05/28/16 15:17 FINAL REPORT [facility] Spine lumbar series DX Spine lumbar series DX Study: Lumbar spine, 5 views Clinical Indication: Lower back pain Comparison: None FINDINGS: Multiple views of the lumbar spine show 5 nonrib-bearing lumbar vertebra. No acute compression fracture or subluxation is seen. Minimal marginal osteophytes with mild disc height loss in the lower lumbar spine are seen at L3-L4 and L4-L5, compatible with mild degenerative disc disease. No pars interarticularis defects are seen. IMPRESSION: Mild degenerative disc disease of the lumbar spine without acute bony abnormality. SL: WR4-M 05/28/2016 - - Read by: Logan Castorena MD Dictated Date/time: 05/28/16 15:18 Electronically Signed by: Logan Castorena MD 05/28/16 15:18 FINAL REPORT [facility] Bone Density Scan Bone Density Scan Patient Name: GORAN VILLARREAL : 1950; Age: 65 years y/o Female MR: [id number] Study: Bone Density Scan 04/21/2016 10:03 AM [employer] Clinical Indication: osteoporosis. COMPARISON: None. FINDINGS: The axial lumbar bone mineral density is 72% of the expected age matched bone mass with a T-score -2.6. Axial lumbar average BMD is 0.76 g/cm2. The left femoral neck bone mineral density is 78% of the expected age matched bone mass with a T-score of -1.6. Left femoral neck BMD is 0.68 g/cm2. The total femoral BMD is 0.89 g/cm2. IMPRESSION: 1. Osteoporosis of the lumbar spine. 2. Osteopenia of the left femoral neck. The World Health Organization has established that OSTEOPOROSIS occurs at -2.5 or more standard deviations (SD) below peak bone mass. OSTEOPENIA (low bone mass) occurs at -1.0 standard deviations to -2.5 standard deviations below peak bone mass. SL: [id number] 04/21/2016 - - Read by: Kwasi Quach MD Dictated Date/time: 04/21/16 11:09 Electronically Signed by: Kwasi Quach MD 04/21/16 11:11 FINAL REPORT [facility] Chest 4 views DX Chest 4 views DX Clinical Indication: 65 years Female with J20.9 Acute bronchitis, unspecified Comparison: Chest x-ray 07/29/2014 FINDINGS: The PA, oblique, and lateral chest radiographs shows normal lung volumes. No interstitial or airspace opacities. No pleural effusion. No pneumothorax. The cardiac silhouette is normal. The pulmonary vasculature is normal. The trachea is midline. There are no acute osseous abnormalities noted. IMPRESSION: No chest radiographic evidence of acute cardiopulmonary disease. SL: [id number] 03/30/2016 - - Read by: Orlando Bo MD Dictated Date/time: 03/30/16 16:35 Electronically Signed by: Orlando Bo MD 03/30/16 16:36 FINAL REPORT [facility] Vital Signs Vital Sign Value Date Comments Source BMI Calculated 35.22 11/23/2017 [facility] Weight 84.545 11/23/2017 [facility] Height 154.94 cm 11/23/2017 [facility] Systolic (mm Hg) 150 11/23/2017 [facility] Diastolic (mm Hg) 75 11/23/2017 [facility] Temperature Oral (F) 98.6 F 11/23/2017 [facility] Heart Rate 63 11/23/2017 [facility] Respitory Rate 14 11/23/2017 [facility] BMI Calculated 34.84 08/22/2017 [facility] Weight 83.636 08/22/2017 [facility] Temperature Oral (F) 97.9 F 08/22/2017 [facility] Respitory Rate 14 08/22/2017 [facility] Height 154.94 cm 08/22/2017 [facility] Heart Rate 69 08/22/2017 [facility] Systolic (mm Hg) 166 08/22/2017 [facility] Diastolic (mm Hg) 72 08/22/2017 [facility] Height 154.94 cm 07/18/2017 [facility] Weight 82.5 07/18/2017 [facility] BMI Calculated 34.37 07/18/2017 [facility] Temperature Oral (F) 98.7 F 07/18/2017 [facility] Respitory Rate 14 07/18/2017 [facility] Heart Rate 80 07/18/2017 [facility] Systolic (mm Hg) 128 07/18/2017 [facility] Diastolic (mm Hg) 76 07/18/2017 [facility] Systolic (mm Hg) 135 07/17/2017 [facility] Diastolic (mm Hg) 48 07/17/2017 [facility] Respitory Rate 20 07/17/2017 [facility] Temperature Oral (F) 97.9 F 07/17/2017 [facility] Systolic (mm Hg) 169 07/17/2017 [facility] Diastolic (mm Hg) 67 07/17/2017 [facility] Respitory Rate 21 07/17/2017 [facility] Respitory Rate 16 07/17/2017 [facility] Systolic (mm Hg) 170 07/16/2017 [facility] Diastolic (mm Hg) 81 07/16/2017 [facility] Heart Rate 61 07/16/2017 [facility] Temperature Oral (F) 98.2 F 07/16/2017 [facility] BMI Calculated 39.47 07/16/2017 [facility] Weight 82.727 07/16/2017 [facility] Height 144.78 cm 07/16/2017 [facility] Heart Rate 71 07/16/2017 [facility] Temperature Oral (F) 97.6 F 07/16/2017 [facility] Weight 83.239 07/12/2017 [facility] BMI Calculated 34.67 07/12/2017 [facility] Height 154.94 cm 07/12/2017 [facility] Temperature Oral (F) 98.6 F 07/12/2017 [facility] Respitory Rate 14 07/12/2017 [facility] Heart Rate 74 07/12/2017 [facility] Systolic (mm Hg) 157 07/12/2017 [facility] Diastolic (mm Hg) 83 07/12/2017 [facility] BMI Calculated 34.65 06/24/2017 [facility] Weight 83.182 06/24/2017 [facility] Height 154.94 cm 06/24/2017 [facility] Systolic (mm Hg) 136 06/24/2017 [facility] Diastolic (mm Hg) 74 06/24/2017 [facility] Temperature Oral (F) 98.2 F 06/24/2017 [facility] Respitory Rate 14 06/24/2017 [facility] Heart Rate 75 06/24/2017 [facility] Weight 83.636 06/17/2017 [facility] BMI Calculated 34.84 06/17/2017 [facility] Height 154.94 cm 06/17/2017 [facility] Respitory Rate 14 06/17/2017 [facility] Temperature Oral (F) 98.7 F 06/17/2017 [facility] Heart Rate 76 06/17/2017 [facility] Systolic (mm Hg) 119 06/17/2017 [facility] Diastolic (mm Hg) 76 06/17/2017 [facility] Height 154.94 cm 04/22/2017 [facility] Weight 83.75 04/22/2017 [facility] BMI Calculated 34.89 04/22/2017 [facility] Systolic (mm Hg) 136 04/22/2017 [facility] Diastolic (mm Hg) 75 04/22/2017 [facility] Temperature Oral (F) 97.8 F 04/22/2017 [facility] Respitory Rate 14 04/22/2017 [facility] Heart Rate 67 04/22/2017 [facility] Weight 85 04/15/2017 [facility] BMI Calculated 35.41 04/15/2017 [facility] Temperature Oral (F) 98.2 F 04/15/2017 [facility] Respitory Rate 14 04/15/2017 [facility] Heart Rate 71 04/15/2017 [facility] Height 154.94 cm 04/15/2017 [facility] Systolic (mm Hg) 141 04/15/2017 [facility] Diastolic (mm Hg) 80 04/15/2017 [facility] Encounters Location Location Details Encounter Type Encounter Number Reason For Visit Attending Provider ADM Date DC Date Status Source [facility] [place] [facility] [id number] Ujan Charles 07/29/2014 2014 [facility] [place] [facility] [place] [facility] [id number] Juan Charles 08/13/2014 08/14/2014 [facility] [place] Outpatient [id number] KAELA CARPENTER 03/30/2016 Active [facility] Outpatient [id number] Kaela Frye 03/30/2016 03/31/2016 [facility] Outpatient [id number] KAELA CARPENTER 04/09/2016 Active [facility] Outpatient [id number] KAELA CARPENTER 04/23/2016 Active [facility] Outpatient [id number] KAELA CARPENTER 05/04/2016 Active [facility] Outpatient [id number] KAELA CARPENTER 05/28/2016 Active [facility] Outpatient [id number] Kaela Frye 05/28/2016 05/29/[address] [facility] [place] [place] [facility] [id number] Shaun Nicole 06/23/2016 07/23/2016 [facility] [place] Outpatient [id number] KAELA CARPENTER 07/09/2016 Active [facility] Outpatient [id number] Kaela Frye 07/09/2016 07/10/2016 [facility] Outpatient [id number] KAELA CARPENTER 07/21/2016 [facility] [id number] KAELA CARPENTER 07/22/2016 Active [facility] Out[facility] [id number] KAELA CARPENTER 07/26/2016 Active [facility] OP Therapy Patients [id number] Shauntrisha Nicole 07/27/2016 08/26/2016 [facility] [place] Outpatient [id number] KAELA CARPENTER 09/20/2016 Active [facility] Outpatient [id number] KAELA CARPENTER 09/27/2016 Active [facility] Out[facility] [id number] COLLEEN SOLITARIO 10/27/2016 Active [facility] Outpatient [id number] Colleen Westh 10/27/2016 10/28/2016 [facility] Outpatient [id number] KAELA CARPENTER 12/22/2016 Active [facility] Outpatient [id number] KAELA CARPENTER 12/28/2016 Active [facility] Outpatient [id number] Kaela Frye 01/05/2017 01/06/2017 [facility] Outpatient [id number] KAELA CARPENTER 03/29/2017 Active [facility] Ambulatory Pre-Reg [id number] Kaela Frye 03/29/2017 03/29/2017 [facility] Outpatient [id number] KAELA CARPENTER 04/15/2017 Active [facility] Outpatient [id number] Kaela Frye 04/15/2017 04/16/2017 [facility] Outpatient [id number] KAELA CARPENTER 04/22/2017 Active [facility] Outpatient [id number] Kaela Frye 04/22/2017 04/23/2017 [facility] Outpatient [id number] [facility] 05/16/2017 Active [facility] U[facility] Ambulatory Pre-Reg [id number] [facility] 05/16/2017 05/16/2017 [facility] Outpatient [id number] KAELA CARPENTER 06/17/2017 Active [facility] Outpatient [id number] Kaela Frye 06/17/2017 06/18/2017 [facility] Primary Care [facility] Outpatient [id number] Kaela Frye 06/17/2017 06/18/2017 [facility] Outpatient [id number] KAELA CARPENTER 06/24/2017 Active [facility] Outpatient [id number] Kaela Frye 06/24/2017 06/25/2017 [facility] Outpatient [id number] KAELA CARPENTER 07/12/2017 Active [facility] Outpatient [id number] Kaela Frye 07/12/2017 07/13/2017 [facility] Emergency [id number] Nelida Andinokathi 07/16/2017 07/17/2017 [facility] Outpatient [id number] KAELA CARPENTER 07/18/2017 Active [facility] Outpatient [id number] Kaela Frye 07/18/2017 07/19/2017 [facility] Phone Message [id number] 08/03/2017 08/05/2017 [facility] Group [facility] Phone Message [id number] 08/17/2017 08/19/2017 [facility] Outpatient [id number] KAELA CARPENTER 08/22/2017 Active [facility] Outpatient [id number] Kaela Frye 08/22/2017 08/23/2017 [facility] Outpatient [id number] Kike Rutherford 08/30/2017 08/31/2017 [facility] Outpatient [id number] KAELA CARPENTER 11/23/2017 Active [facility] Outpatient [id number] Kaela Frye 11/23/2017 11/24/2017 [facility] [place] [facility] [id number] Lg Presley 12/14/2017 12/15/2017 [facility] [place] [facility] [place] [facility] [id number] Lg Presley 12/16/2017 12/17/2017 [facility] [place] Procedures Procedure Code Date Perfomer Comments Source Mammogram - screening<sup>1</sup> [id number] 05/21/2017 Normal at [facility] Mammogram - screening<sup>1</sup> [id number] 05/21/2017 Normal at [facility] Mammogram - screening<sup>1</sup> [id number] 05/21/2017 Normal at [facility] [place] Eye examination [id number] 09/11/2016 [facility] Eye examination [id number] 09/11/2016 [facility] Eye examination [id number] 09/11/2016 [facility] [place] Mammogram [id number] 03/14/2015 [facility] Mammogram [id number] 03/14/2015 [facility] Mammogram [id number] 03/14/2015 [facility] [place] Cholecystectomy [id number] [facility] Hysterotomy [id number] [facility] Tonsillectomy and adenoidectomy [id number] [facility] Cholecystectomy [id number] [facility] Hysterotomy [id number] [facility] Tonsillectomy and adenoidectomy [id number] [facility] Cholecystectomy [id number] [facility] [place] Hysterotomy [id number] [facility] [place] Tonsillectomy and adenoidectomy [id number] [facility] [place]
--- OUTSIDE RECORDS SUMMARY | 2018-08-10 08:37 | XMS REPORT | Summary of Care ---
Author Author [facility] Organization [facility] Address Unknown Phone Unavailable Encounter HQ Sabino(FIN) [id number] Date(s): 11/23/17 - 11/23/17 [facility] [address] [address]- Discharge Disposition: Home or Self Care Attending Physician: Keala Klein MD Vital Signs Most recent to 1 oldest [Reference Range]: Height 154.94 cm (11/23/17 8:01 AM) Temperature Oral 98.6 DegF [96.4-99.1 DegF] (11/23/17 8:01 AM) Blood Pressure 150/75 mmHg [90-140/60-90 mmHg] *HI* (11/23/17 8:01 AM) Respiratory Rate 14 BRMIN [14-20 BRMIN] (11/23/17 8:01 AM) Peripheral Pulse 63 bpm Rate [60-100 bpm] (11/23/17 8:01 AM) Weight 84.545 kg (11/23/17 8:01 AM) Body Mass Index 35.22 m2 (11/23/17 8:01 AM) Problem List Condition Effective Dates Status Health Status Informant Acute Active bronchitis(Confirmed ) Adrenal Active cyst(Confirmed) Right knee Active pain(Confirmed) Benign essential Active HTN(Confirmed) BPPV (benign Active paroxysmal positional vertigo)(Confirmed) Breast cancer Active screening(Confirmed) Chronic Active cough(Confirmed) B12 Active deficiency(Confirmed ) Low serum vitamin Active D(Confirmed) SOB (shortness of Active breath) on exertion(Confirmed) Skin rash(Confirmed) Active Hospital discharge Active follow-up(Confirmed) GERD Active (gastroesophageal reflux disease)(Confirmed) Headache(Confirmed) Active Excess ear Active wax(Confirmed) Kidney Active stones(Confirmed) Low back Active pain(Confirmed) Hyperlipidemia, Active mixed(Confirmed) Obesity(Confirmed) Active Osteoporosis(Confirm Active ed) Annual physical Active exam(Confirmed) Prediabetes(Confirme Active d) Colon cancer Active screening(Confirmed) Wheezing(Confirmed) Active Allergies, Adverse Reactions, Alerts Substance Reaction Severity Status Cipro Active NKDA Active Medications losartan 50 mg oral tablet 50 mg=1 tab, PO, Daily, # 90 tab, 1 Refill(s), [id number] Start Date: 11/23/17 Stop Date: 05/17/18 Status: Completed losartan 50 mg oral tablet See Instructions, TOME KRISTYN TABLETA TODOS [place], # 30 tab, 0 Refill(s), Pharma cy: [facility]/pharmacy #[id number] Start Date: 05/17/18 Status: Ordered Metoprolol Succinate ER 50 mg oral tablet, extended release See Instructions, TAKE ONE TABLET BY MOUTH DAILY, # 90 tab, 1 Refill(s), Pharmac y: [facility]/pharmacy #[id number] Start Date: 11/23/17 Status: Ordered simvastatin 10 mg oral tablet 10 mg=1 tab, PO, Bedtime, # 90 tab, 1 Refill(s), [id number] Start Date: 11/23/17 Stop Date: 05/22/18 Status: Ordered Results No data available for this section Immunizations Given and Recorded Vaccine Date Status Refusal Reason pneumococcal 23-valent vaccine 03/23/16 Recorded zoster vaccine live 03/23/16 Recorded Procedures Procedure Date Related Diagnosis Body Site Status Mammogram - screening1 05/21/17 Completed Eye examination 09/2016 Completed Mammogram 2015 Completed Cholecystectomy Completed Hysterotomy Completed Tonsillectomy and adenoidectomy Completed 1Normal at [place] Social History Social History Type Response Exercise [...] Reg Smoking Cessation Counseling No entered on: 11/23/17 Assessment and Plan No data available for this section
--- OUTSIDE RECORDS SUMMARY | 2018-08-10 08:37 | XMS REPORT | Summary of Care ---
Author Author [facility] Address Unknown Phone Unavailable Encounter YE Gallo(MANDA) [id number] Date(s): 06/23/16 - 07/22/16 [facility] Discharge Disposition: Home or Self Care Attending Physician: Shaun Nicole MD Vital Signs No data available for this section Problem List Condition Effective Dates Status Health Status Informant SOB (shortness of Active breath) on exertion(Confirmed) Right hand Active pain(Confirmed) Obesity(Confirmed) Active Left ear Active pain(Confirmed) Sore Active throat(Confirmed) Right ear Active pain(Confirmed) Allergies, Adverse Reactions, Alerts Substance Reaction Severity Status Cipro Active NKDA Active Medications metoprolol 50 mg oral tablet, extended release 50 mg=1 tab, PO, Daily, # 90 tab, 0 Refill(s), Pharmacy: [facility]/pharmacy #[id number] Start Date: 07/13/16 Stop Date: 10/11/16 Status: Ordered Results No data available for this section Immunizations No data available for this section Procedures No data available for this section Social History Social History Type Response Alcohol Never, Previous treatment: None. Alcohol use [...]
--- OUTSIDE RECORDS SUMMARY | 2018-08-10 08:37 | XMS REPORT | Summary of Care ---
Author Author [facility] Address Unknown Phone Unavailable Encounter YE Gallo(MANDA) [id number] Date(s): 07/27/16 - 08/25/16 [facility] Discharge Disposition: Home or Self Care [...]
--- OUTSIDE RECORDS SUMMARY | 2018-08-10 08:38 | XMS REPORT | Summary of Care ---
Author Author [facility] Primary Care [facility] Organization [facility] Address Unknown Phone Unavailable Encounter HQ Alex_shantelle(FIN) [id number] Date(s): 04/15/17 - 04/15/17 [facility] [address], [address] [place] [address]- [phone] Discharge Disposition: Home or Self Care Attending Physician: Kaela Klein MD Vital Signs Most recent to 1 oldest [Reference Range]: Height 154.94 cm (04/15/17 7:53 AM) Temperature Oral 98.2 DegF [96.4-99.1 DegF] (04/15/17 7:53 AM) Blood Pressure 141/80 mmHg [90-140/60-90 mmHg] *HI* (04/15/17 7:53 AM) Respiratory Rate 14 BRMIN [14-20 BRMIN] (04/15/17 7:53 AM) Peripheral Pulse 71 bpm Rate [60-100 bpm] (04/15/17 7:53 AM) Weight 85 kg (04/15/17 7:53 AM) Body Mass Index 35.41 m2 (04/15/17 7:53 AM) Problem List Condition Effective Dates Status [...] Severity Status Cipro Active NKDA Active Medications alendronate 70 mg oral tablet 70 mg=1 tab, PO, Q7D, with 6 to 8 ounces plain water, at least 30 minutes before first food, beverage, or medication of the day, # 16 tab, 3 Refill(s), Pharmacy: [facility] #[id number] Start Date: 04/15/17 Stop Date: 07/07/18 Status: Ordered ergocalciferol 50,000 intl units oral capsule 50,000 IntlUnit=1 cap, PO, 2x/Wk, # 24 cap, 1 Refill(s), [id number] Start Date: 04/15/17 Stop Date: 04/22/17 Status: Discontinued loratadine 10 mg oral tablet 10 mg=1 tab, PO, Daily, # 90 tab, 1 Refill(s), [id number] Start Date: 04/15/17 Stop Date: 10/12/17 Status: Ordered Metoprolol Succinate ER 50 mg oral tablet, extended release See Instructions, TAKE ONE TABLET BY MOUTH DAILY, # 90 tab, 1 Refill(s), [id number] Start Date: 04/15/17 Stop Date: 06/07/17 Status: Completed simvastatin 10 mg oral tablet 10 mg=1 tab, PO, Bedtime, # 90 tab, 1 Refill(s), Pharmacy: [facility] #[id number] Start Date: 04/15/17 Stop Date: 10/12/17 Status: Ordered Results No data available for [...] Reg Smoking Cessation Counseling No entered on: 07/18/17 Assessment and Plan No data available for this section
--- OUTSIDE RECORDS SUMMARY | 2018-08-10 08:38 | XMS REPORT | Summary of Care ---
Author Author [facility] Primary Care [facility] Organization [facility] Address Unknown Phone Unavailable Encounter HQ Alex_shantelle(FIN) [id number] Date(s): 07/18/17 - 07/18/17 [facility] [address], [address] [place] [address]- [phone] Discharge Disposition: Home or Self Care Attending Physician: Kaela Klein MD Vital Signs Most recent to 1 oldest [Reference Range]: Height 154.94 cm (07/18/17 10:43 AM) Temperature Oral 98.7 DegF [96.4-99.1 DegF] (07/18/17 10:43 AM) Blood Pressure 128/76 mmHg [90-140/60-90 mmHg] (07/18/17 10:43 AM) Respiratory Rate 14 BRMIN [14-20 BRMIN] (07/18/17 10:43 AM) Peripheral Pulse 80 bpm Rate [60-100 bpm] (07/18/17 10:43 AM) Weight 82.5 kg (07/18/17 10:43 AM) Body Mass Index 34.37 m2 (07/18/17 10:43 AM) Problem List Condition Effective Dates Status [...] Severity Status Cipro Active NKDA Active Medications baclofen 10 mg oral tablet 10 mg=1 tab, PO, Bedtime, PRN Spasms, MAY CAUSE DRAWSINESS, # 10 tab, 0 Refill(s ), Pharmacy: [facility] #[id number] Start Date: 07/18/17 Stop Date: 07/25/17 Status: Ordered ibuprofen 800 mg oral tablet 800 mg=1 tab, PO, Q12H, PRN Pain, Take with food, X 10 day, # 20 tab, 0 Refill(s ), Pharmacy: [facility] #[id number] Start Date: 07/18/17 Stop Date: 07/28/17 Status: Ordered Results No data available for [...]
--- OUTSIDE RECORDS SUMMARY | 2018-08-10 08:38 | XMS REPORT | Summary of Care ---
Author Author [facility] Primary Care [facility] Organization [facility] Address Unknown Phone Unavailable Encounter HQ Alex_shantelle(FIN) [id number] Date(s): 04/22/17 - 04/22/17 [facility] [address], [address] [place] [address]- [phone] Discharge Disposition: Home or Self Care Attending Physician: Kaela Klein MD Vital Signs Most recent to 1 oldest [Reference Range]: Height 154.94 cm (04/22/17 7:42 AM) Temperature Oral 97.8 DegF [96.4-99.1 DegF] (04/22/17 7:42 AM) Blood Pressure 136/75 mmHg [90-140/60-90 mmHg] (04/22/17 7:42 AM) Respiratory Rate 14 BRMIN [14-20 BRMIN] (04/22/17 7:42 AM) Peripheral Pulse 67 bpm Rate [60-100 bpm] (04/22/17 7:42 AM) Weight 83.75 kg (04/22/17 7:42 AM) Body Mass Index 34.89 m2 (04/22/17 7:42 AM) Problem List Condition Effective Dates Status [...] Severity Status Cipro Active NKDA Active Medications aspirin 81 mg tablet, enteric coated 81 mg=1 tab, PO, Daily, # 90 tab, 3 Refill(s), [id number] Start Date: 04/22/17 Status: Ordered ergocalciferol 50,000 intl units oral capsule 50,000 IntlUnit=1 cap, PO, qWeek, # 13 cap, 1 Refill(s), [id number] Start Date: 04/22/17 Stop Date: 10/19/17 Status: Ordered Vitamin B12 1000 mcg oral tablet 1,000 microgram=1 tab, PO, Daily, # 100 tab, 0 Refill(s), Pharmacy: [facility] #[id number] Start Date: 04/22/17 Status: Ordered Results No data available for [...]
--- OUTSIDE RECORDS SUMMARY | 2018-08-10 08:38 | XMS REPORT | Summary of Care ---
Author Author [facility] Primary Care [facility] Organization [facility] Address Unknown Phone Unavailable Encounter HQ Sabino(FIN) [id number] Date(s): 08/17/17 - 08/18/17 [facility] [address], [address] [place], [place] [address]- [phone] Vital Signs No data available for this [...]
--- OUTSIDE RECORDS SUMMARY | 2018-08-10 08:38 | XMS REPORT | Summary of Care ---
Author Author [facility] Primary Care [facility] Organization [facility] Address Unknown Phone Unavailable Encounter HQ Sabino(FIN) [id number] Date(s): 07/12/17 - 07/12/17 [facility] [address], [address] [place] [address]- [phone] Discharge Disposition: Home or Self Care Attending Physician: Kaela Klein MD Vital Signs Most recent to 1 oldest [Reference Range]: Height 154.94 cm (07/12/17 10:03 AM) Temperature Oral 98.6 DegF [96.4-99.1 DegF] (07/12/17 10:03 AM) Blood Pressure 157/83 mmHg [90-140/60-90 mmHg] *HI* (07/12/17 10:03 AM) Respiratory Rate 14 BRMIN [14-20 BRMIN] (07/12/17 10:03 AM) Peripheral Pulse 74 bpm Rate [60-100 bpm] (07/12/17 10:03 AM) Weight 83.239 kg (07/12/17 10:03 AM) Body Mass Index 34.67 m2 (07/12/17 10:03 AM) Problem List Condition Effective Dates Status [...] Severity Status Cipro Active NKDA Active Medications Azithromycin 5 Day Dose Pack 250 mg oral tablet See Instructions, Take 2 tablets by mouth the first day then 1 tablet by mouth d ays 2-5., X 5 day, # 6 tab, 0 Refill(s), [facility]acy: [facility] #[id number] Start Date: 07/12/17 Stop Date: 07/17/17 Status: Ordered Ventolin HFA 90 mcg/inh inhalation aerosol with adapter 2 puff, INHALER, Q4H, PRN wheezing, coughing, or shortness of breath, # 8 gm, 1 Refill(s), [facility]: [facility] #[id number] Start Date: 07/12/17 Status: Ordered Results No data available for [...] Reg Smoking Cessation Counseling No entered on: 07/12/17 Assessment and Plan No data available for this section
--- OUTSIDE RECORDS SUMMARY | 2018-08-10 08:38 | XMS REPORT | Summary of Care ---
Author Author [facility] Organization [facility] Address Unknown Phone Unavailable Encounter HQ Sabnio(FIN) [id number] Date(s): 05/16/17 - 05/16/17 [facility] [address], [address] [place] [address] [phone] Attending Physician: Dre Celaya MD Vital Signs No data available for [...]
--- OUTSIDE RECORDS SUMMARY | 2018-08-10 08:38 | XMS REPORT | Summary of Care ---
Author Author [facility] Primary Care [facility] Organization [facility] Primary [facility] Address Unknown Phone Unavailable Encounter YE Gallo(FIN) [id number] Date(s): 08/03/17 - 08/04/17 [facility] Primary Care [facility] [address], [address] [place] [address]- [phone] Vital Signs No data available for this [...]
--- OUTSIDE RECORDS SUMMARY | 2018-08-10 08:39 | XMS REPORT | Summary of Care ---
Author Author [facility] Organization [facility] Address Unknown Phone Unavailable Encounter HQ Alex_shantelle(MANDA) [id number] Date(s): 07/09/16 - 07/09/16 [facility] [address] [place] [address]- Discharge Disposition: Home or Self Care Attending Physician: Kaela Klein MD Admitting Physician: Kaela Klein MD Vital Signs No data available for this section Problem List Condition Effective Dates Status Health Status Informant SOB (shortness of Active breath) on exertion(Confirmed) Right hand Active pain(Confirmed) Obesity(Confirmed) Active Right ear Active pain(Confirmed) Allergies, Adverse Reactions, [...]
--- OUTSIDE RECORDS SUMMARY | 2018-08-10 08:39 | XMS REPORT | Summary of Care ---
Author Author [facility] Outpatient Imaging - [facility] [place] Address Unknown Phone Unavailable Encounter YE Gallo(FIN) [id number] Date(s): 12/16/17 - 12/16/17 [facility] [place] [address] [place] [address]- [facility] [phone] Encounter Diagnosis Age-related osteoporosis without current pathological fracture (Final) - 12/22/17 Asymptomatic menopausal state (Final) - Essential (primary) hypertension (Final) - Polyarthritis, unspecified (Final) - Discharge Disposition: Home or Self Care Attending Physician: Lg Presley MD Referring Physician: Lg Presley MD Vital Signs No data available for [...] Completed Tonsillectomy and adenoidectomy Completed 1Normal at [place] Social History Social History Type Response Exercise [...]
--- OUTSIDE RECORDS SUMMARY | 2018-08-10 08:39 | XMS REPORT | Summary of Care ---
Author Author [facility] Organization [facility] Address Unknown Phone Unavailable Encounter HQ Sabino(FIN) [id number] Date(s): 08/30/17 - 08/30/17 [facility] [address] [place] [address]- Encounter Diagnosis Cough (Final) - Discharge Disposition: Home or Self Care Attending Physician: Kike Rutherford MD Vital Signs No data available for [...] Completed Tonsillectomy and adenoidectomy Completed 1Normal at [place] Social History Social History Type Response Exercise [...] Reg Smoking Cessation Counseling No entered on: 08/22/17 Assessment and Plan No data available for this section
--- OUTSIDE RECORDS SUMMARY | 2018-08-10 08:39 | XMS REPORT ---
Author Author [facility] Address Unknown Phone Unavailable Care Team Providers Care [place] Name Role Phone Unavailable Unavailable Payers Payer Name Policy Type Policy Number Effective Date Expiration Date Problems This patient has no known problems. Allergies, Adverse Reactions, Alerts Allergy Name Allergy Type Status Severity Reaction(s) Onset Date Inactive Date Treating Clinician Comments ciprofloxacin DA Active SV 2015-09-09 00:00:00 Medications This patient has no known medications.
--- OUTSIDE RECORDS SUMMARY | 2018-08-10 08:39 | XMS REPORT | Summary of Care ---
Author Author [facility] Primary [facility] Organization [facility] Address Unknown Phone Unavailable Encounter YE Gallo(FIN) [id number] Date(s): 06/17/17 - 06/17/17 [facility] [address], [address] [place], [place] [address]- [phone] Discharge Disposition: Home or Self Care Attending Physician: Kaela Klein MD Vital Signs Most recent to 1 oldest [Reference Range]: Height 154.94 cm (06/17/17 9:37 AM) Temperature Oral 98.7 DegF [96.4-99.1 DegF] (06/17/17 9:37 AM) Blood Pressure 119/76 mmHg [90-140/60-90 mmHg] (06/17/17 9:37 AM) Respiratory Rate 14 BRMIN [14-20 BRMIN] (06/17/17 9:37 AM) Peripheral Pulse 76 bpm Rate [60-100 bpm] (06/17/17 9:37 AM) Weight 83.636 kg (06/17/17 9:37 AM) Body Mass Index 34.84 m2 (06/17/17 9:37 AM) Problem List Condition Effective Dates Status [...] Severity Status Cipro Active NKDA Active Medications albuterol 0.042% inhalation solution 1.25 mg=3 mL, INHALATION, Q4H, PRN Cough, Wheezing, or Shortness of Breath, # 25 ea, 1 Refill(s), Pharmacy: [facility] #[id number] Start Date: 06/17/17 Stop Date: 08/15/17 Status: Completed Bromfed DM oral syrup 5 mL, PO, TID, PRN cough, X 8 day, # 120 mL, 0 Refill(s), Pharmacy: [facility] #[id number] Start Date: 06/17/17 Stop Date: 06/25/17 Status: Completed ProAir HFA 90 mcg/inh inhalation aerosol with adapter 1 puff, INHALER, Q6H, PRN for wheezing, # 2 ea, 0 Refill(s), [facility] #[id number] Start Date: 06/17/17 Stop Date: 06/24/17 Status: Discontinued Results No data available for this section Immunizations Given and Recorded Vaccine Date Status Refusal Reason pneumococcal 23-valent vaccine 03/23/16 Recorded zoster vaccine live 03/23/16 Recorded Procedures Procedure Date Related Diagnosis Body Site Status Mammogram - screening1 05/21/17 Completed Eye examination 09/2016 Completed Mammogram 2015 Completed Cholecystectomy Completed Hysterotomy Completed Tonsillectomy and adenoidectomy Completed 1Normal at [place] Social History Social History Type Response Exercise [...]
--- OUTSIDE RECORDS SUMMARY | 2018-08-10 08:39 | XMS REPORT | Summary of Care ---
Author Author [facility] Organization [facility] Address Unknown Phone Unavailable Encounter HQ Sabino(FIN) [id number] Date(s): 06/17/17 - 06/17/17 [facility] [address] [place] [address]- [phone] Encounter Diagnosis Allergic rhinitis, unspecified (Final) - 06/24/17 Wheezing (Final) - Atherosclerosis of aorta (Final) - Discharge Disposition: Home or Self [...] Completed Tonsillectomy and adenoidectomy Completed 1Normal at [place] Social History Social History Type Response [...]
--- OUTSIDE RECORDS SUMMARY | 2018-08-10 08:39 | XMS REPORT | Summary of Care ---
Author Organization Unknown Address Unknown Phone Unavailable Encounter HQ Encntr_aligermán(MANDA) [id number] Date(s): 07/29/14 - 07/29/14 [facility] Outpatient Imaging - [address] [place] [address] [phone] Discharge Disposition: Home Physician Attending: Juan Charles MD Vital Signs No data available for this section Problem List No data available for this section Allergies, Adverse Reactions, Alerts Substance Reaction Severity Status NKDA Active Medications No data available for this section Results No data available for this section Immunizations No data available for this section Procedures No data available for this section Social History No data available for this section Assessment and Plan No data available for this section
--- OUTSIDE RECORDS SUMMARY | 2018-08-10 08:39 | XMS REPORT | Summary of Care ---
Author Author [facility] Organization [facility] Address Unknown Phone Unavailable Encounter HQ Alex_shantelle(MANDA) [id number] Date(s): 05/28/16 - 05/28/16 [facility] [address] [place] [address]- [phone] Discharge Disposition: Home or Self Care Attending Physician: Kaela Klein MD Admitting Physician: Kaela Klein MD Vital Signs No data available for this section Problem List Condition Effective Dates Status Health Status Informant Obesity(Confirmed) Active Allergies, Adverse Reactions, Alerts Substance Reaction [...]
--- OUTSIDE RECORDS SUMMARY | 2018-08-10 08:39 | XMS REPORT | Summary of Care ---
Author Organization Unknown Address Unknown Phone Unavailable Encounter HQ Encntr_alias([facility] [id number] Date(s): 08/13/14 - 08/13/14 [facility] Outpatient Imaging - [address] [place] [address] [phone] Discharge Disposition: Home Physician Attending: Juan Charles [...]
--- OUTSIDE RECORDS SUMMARY | 2018-08-10 08:39 | XMS REPORT | Summary of Care ---
Author Author [facility] Outpatient Imaging - [facility] acute hospital Outpatient Imaging - [place] Address Unknown Phone Unavailable Encounter HQ Sabino(FIN) [id number] Date(s): 12/14/17 - 12/14/17 [facility] Outpatient Imaging - [place] [address] [place] [address]- [facility] [phone] Encounter Diagnosis Essential (primary) hypertension (Final) - 12/19/17 Primary osteoarthritis, left hand (Final) - Primary osteoarthritis, right hand (Final) - Pleural plaque without asbestos (Final) - Discharge Disposition: Home or Self [...] Completed Tonsillectomy and adenoidectomy Completed 1Normal at [place] Social History Social History Type Response Exercise [...]
--- OUTSIDE RECORDS SUMMARY | 2018-08-10 08:39 | XMS REPORT | Summary of Care ---
Author Author [facility] Organization [facility] Address Unknown Phone Unavailable Encounter HQ [email or web address](FIN) [id number] Date(s): 08/22/17 - 08/22/17 [facility] [address], [address] [place] [address]- [phone] Discharge Disposition: Home or Self Care Attending Physician: Kaela Klein MD Vital Signs Most recent to 1 oldest [Reference Range]: Height 154.94 cm (08/22/17 7:47 AM) Temperature Oral 97.9 DegF [96.4-99.1 DegF] (08/22/17 7:47 AM) Blood Pressure 166/72 mmHg [90-140/60-90 mmHg] *HI* (08/22/17 7:47 AM) Respiratory Rate 14 BRMIN [14-20 BRMIN] (08/22/17 7:47 AM) Peripheral Pulse 69 bpm Rate [60-100 bpm] (08/22/17 7:47 AM) Weight 83.636 kg (08/22/17 7:47 AM) Body Mass Index 34.84 m2 (08/22/17 7:47 AM) Problem List Condition Effective Dates Status [...] Active Medications DME Addition #1 See Instructions, PATIENT NEEDS BP MACHINE TO CHECK BP BID, # 1 ea, 0 Refill(s) Start Date: 08/22/17 Status: Ordered Metoprolol Succinate ER 50 mg oral tablet, extended release See Instructions, TAKE ONE TABLET BY MOUTH DAILY, # 90 tab, 1 Refill(s), Pharmac y: [facility] #[id number] Start Date: 06/07/17 Status: Ordered valsartan 80 mg oral tablet 80 mg=1 tab, PO, Daily, # 90 tab, 1 Refill(s), Pharmacy: [id number] Start Date: 08/22/17 Stop Date: 02/18/18 Status: Ordered Results No data available for this section Immunizations Given and Recorded Vaccine Date Status Refusal Reason pneumococcal 23-valent vaccine 03/23/16 Recorded zoster vaccine live 03/23/16 Recorded Procedures Procedure Date Related Diagnosis Body Site Status Mammogram - screening1 05/21/17 Completed Eye examination 09/2016 Completed Mammogram 2015 Completed Cholecystectomy Completed Hysterotomy Completed Tonsillectomy and adenoidectomy Completed 1Normal at [facility] Social History Social History Type Response Exercise [...]
--- OUTSIDE RECORDS SUMMARY | 2018-08-10 08:39 | XMS REPORT | Summary of Care ---
Author Author [facility] Organization [facility] Address Unknown Phone Unavailable Encounter HQ [email or web address](FIN) [id number] Date(s): 03/30/16 - 03/30/16 [facility] [address] [place] [address]- Discharge Disposition: Home or Self Care Attending [...]
[2018-08-10] MEDS ORDERED: METOPROLOL TART50 MG PO (09:14)
[2018-08-10] MEDS ORDERED: ALBUTEROL/IPRATROPIUM 3 ML NEB NEB STA (09:43)
[2018-08-10] MEDS ORDERED: METHYLPREDNISOLONE SOD SUCC 125 MG/2ML VIAL IV STA (09:43)
--- NOTE | 2018-08-10 10:16 | Diagnostic Imaging Report ---
EXAMINATION: CXR 2 VIEW - HOPD INDICATION: Cough, headache. COMPARISON: None FINDINGS: TUBES and LINES: None. LUNGS: Lungs are well inflated. Mild bronchial wall thickening. There is focal opacity in the left lower lung. No evidence of lobar pneumonia or pulmonary edema. PLEURA: No pleural effusion or pneumothorax. HEART AND MEDIASTINUM: The cardiomediastinal silhouette is unremarkable. BONES AND SOFT TISSUES: No acute osseous abnormality. UPPER ABDOMEN: No free air under the diaphragm. IMPRESSION: Indeterminate opacity in the left lower lung may represent overlapping vessels, although underlying pulmonary nodule is possible. Suggest follow-up chest radiograph or chest CT for further evaluation. Mild bronchial wall thickening may represent bronchitis in the setting of cough. Signed by: Dr. Derick Sandhu MD on 08/10/2018 10:13 AM
[2018-08-10] MEDS ORDERED: METHYLPREDNISOLONE SOD SUCC 125 MG/2ML VIAL ONE (10:19)
--- NOTE | 2018-08-10 10:33 | NUR ---
CALLED PHARMACY [facility] FOR MEDS.
--- NOTE | 2018-08-10 11:18 | Diagnostic Imaging Report ---
EXAM: CT Chest without contrast INDICATION: Cough. Chest radiograph with indeterminate opacity. COMPARISON: Chest radiograph 08/10/2018. TECHNIQUE: Chest was scanned utilizing a multidetector helical scanner from the lung apex through the level of the adrenal glands without administration of IV contrast. Coronal and sagittal reformations were obtained. Routine protocol was performed. RADIATION DOSE: Total DLP: 587.4 mGy*cm COMPLICATIONS: None FINDINGS: LINES/ TUBES: None. LUNGS AND AIRWAYS: The central airways are patent. Minimal biapical pleural-parenchymal opacity, consistent with prior granulomatous disease. Diffuse mild bronchial wall thickening. There is a 3 mm possible partially calcified nodule in the right upper lobe on series 3, image 50. There is a 2 mm subpleural right upper lobe nodule on image 60. There is a 5 mm groundglass nodule in the right lower lobe on image 57. Mild patchy opacity in the dependent right greater than left lower lobes, likely atelectasis. No evidence of lobar pneumonia. PLEURA: The pleural spaces are clear. HEART AND MEDIASTINUM: The thyroid gland is normal. No mediastinal, hilar or axillary lymphadenopathy. No cardiomegaly or pericardial effusion. Scattered atherosclerotic changes of the thoracic aorta. UPPER ABDOMEN: Limited non-contrast views of the upper abdomen. Diffuse mild hepatic steatosis. There is a 1.4 cm right adrenal adenoma (series 2, image 95; 2 HU). BONES: No acute osseous abnormality. No suspicious lytic or blastic lesions. SOFT TISSUES: Unremarkable. IMPRESSION: No CT correlate to left lower lung opacity noted on chest radiograph which likely represented overlapping vessels and atelectasis. A 5 mm groundglass nodule in the right lower lobe, likely infectious or inflammatory. Scattered pulmonary nodules as above. An optional follow-up chest CT may be considered in 12 months. Mild patchy opacities in the dependent right greater than left lower lobes, likely atelectasis. Diffuse mild bronchial wall thickening which may represent bronchitis in the setting of cough. Sequela of prior granulomatous disease. Diffuse mild hepatic steatosis. Signed by: Dr. Derick Sandhu MD on 08/10/2018 11:15 AM
== END 2018-08-10 12:01 | disposition home or self-care (01) ==
LOC: FSED 08:34
DX: R50.9 Fever, unspecified (principal); R05 Cough; J20.9 Acute bronchitis, unspecified; I10 Essential (primary) hypertension; E03.9 Hypothyroidism, unspecified
CPT/HCPCS: 71046; 71250; 80048; 80076; 81003; 82553; 83518; 83880; 84484; 85025; 99284; J2930

== ENCOUNTER 2024-07-10 13:15 | Emergency (ER) | payer MEDICARE ==
[~2024-07-10] VITALS: Ht 147.3 cm; Wt 79.6 kg
[~2024-07-10 13:15] MED LIST: METOPROLOL TART50 MG PO
[2024-07-10] MEDS: ONDANSETRON HCL INJ 2MG/ML 2ML 2 MG/ML VIAL IV STA (14:19)
[2024-07-10] MEDS: SODIUM CHLORIDE 0.9% 1000ML 1,000 ML IV ONE (14:19)
[2024-07-10] MEDS: ACETAMINOPHEN 325 MG TAB PO ONE (14:20)
[2024-07-10 14:21] VITALS: BP 156/70
[2024-07-10] MEDS: HYDRALAZINE HCL 20 MG/ML VIAL IV STA (14:21)
[2024-07-10] MEDS ORDERED: ACETAMINOPHEN 325 MG TAB PO ONE (14:45)
[2024-07-10 15:25] VITALS: PULSE 78; RESP 16; TEMP 98.7; O2SAT 95
[2024-07-10] MEDS ORDERED: PAXLOVID 300-11 EAC1 PO (15:50)
== END 2024-07-10 16:00 | disposition home or self-care (01) ==
LOC: FSED 13:23
DX: R11.2 Nausea with vomiting, unspecified (principal); U07.1 COVID-19; R19.7 Diarrhea, unspecified; I10 Essential (primary) hypertension; E03.9 Hypothyroidism, unspecified; E66.9 Obesity, unspecified; Z87.442 Personal history of urinary calculi
CPT/HCPCS: 0223U; 71046; 80053; 80076; 81003; 83518; 83880; 84484; 85025; 87400; 99284; J2405; J7030; J0360